=== PATIENT | male | born 1985 | race Hispanic/Latino ===

== ENCOUNTER 2018-06-30 13:54 | Emergency (ER) | payer OTHER ==
[~2018-06-30] VITALS: Ht 175.3 cm; Wt 65.8 kg
[~2018-06-30 13:54] MED LIST: VALIUM5 MG PO; VISTARIL25 MG PO
[2018-06-30] MEDS ORDERED: XANAX XR3 MG PO (14:21)
[2018-06-30] MEDS ORDERED: SERTRALINE HCL50 MG PO (14:21)
== END 2018-06-30 16:45 | disposition home or self-care (01) ==
LOC: ED 13:54
DX: F12.288 Cannabis dependence with other cannabis-induced disorder (principal); F41.9 Anxiety disorder, unspecified; R11.0 Nausea; F17.200 Nicotine dependence, unspecified, uncomplicated; Z79.899 Other long term (current) drug therapy
CPT/HCPCS: 80053; 81001; 85025; 96374; 99283; J2405; J7030